=== PATIENT | male | born 1955 | race Two or more races ===

== ENCOUNTER 2021-07-13 09:01 | Outpatient (CLI) | payer OTHER | END 2021-07-13 15:38 | disposition home or self-care (01) | LOC: SONOGRAMA 09:01 | PROVIDERS: ATTEND Specialist | DX: R74.8 Abnormal levels of other serum enzymes (principal) ==

== ENCOUNTER 2022-11-18 07:31 | Outpatient (CLI) | payer OTHER | END 2022-11-18 07:43 | disposition home or self-care (01) | LOC: SONOGRAMA 07:31 | PROVIDERS: ATTEND Specialist | DX: R74.8 Abnormal levels of other serum enzymes (principal); R79.89 Other specified abnormal findings of blood chemistry ==

== ENCOUNTER 2025-04-15 16:55 | Emergency (ER) | payer OTHER ==
[~2025-04-15] VITALS: Ht 167.6 cm; Wt 59.0 kg
[2025-04-15] MEDS ORDERED: TOPROL XL100 M1 PO (17:21)
[2025-04-15] MEDS ORDERED: PLAVIX75 MG PO (17:21)
[2025-04-15 17:22] VITALS: O2SAT 99
[2025-04-15] MEDS ORDERED: LEVO-T25 MCG PO (17:22)
[2025-04-15] MEDS ORDERED: CEFTRIAXONE SODIUM 2,000 MG in 0.9 % SODIUM CHLORIDE 100 ML IV ONE (18:00)
[2025-04-15] MEDS ORDERED: TAMSULOSIN HCL 0.4 MG CAP PO ONE ×2 (18:00→18:15)
[2025-04-15] MEDS ORDERED: ACETAMINOPHEN 500 MG GEL..CAP PO ONE ×2 (18:00→18:15)
[2025-04-15] MEDS ORDERED: 0.9 % SODIUM CHLORIDE 1,000 ML IV ONE (18:00)
[2025-04-15] MEDS ORDERED: CEFTRIAXONE SODIUM 2,000 MG VIAL ONE (18:15)
[2025-04-15 19:22] LABS: BASO % 0.3 % (0.1-1.2); EOS # 0.04 (0.04-0.54); EOS % 0.4 % (0.7-7.0); LYMPH # 2.12 (1.18-3.74); LYMPH % 18.7 % (19.3-53.1); MEAN PLATELET VOLUME 10.40 fl (9.4-12.4); MONO # 1.09 (0.24-0.82); MONO % 9.6 % (4.7-12.5); NEUT # 7.99 (1.56-6.13); NEUT % 70.4 % (34.0-71.1); RED CELL DISTRIBUTION WIDTH 13.9 % (11.6-14.4)
[2025-04-15 19:25] LABS: ERYTHROCYTE SEDIMENTATION RATE 16 mm/hr (0-20)
[2025-04-15 19:53] LABS: INR 1.04
[2025-04-15 20:25] LABS: ALT/SGPT 23.0 U/L (12-78); AST/SGOT 26.0 U/L (15-37); BILIRUBIN TOTAL 1.83 mg/dL (0.3-1.2); BUN CREA RATIO 11.0 (7.0-25.0); CREATININE SERUM 0.98 mg/dL (0.70-1.30); GFR 75.18; GLOBULINA 5.2 G/DL (2.4-3.5); GLUCOSE FASTING 108.0 mg/dL (65-100); OSMOLALITY SERUM 276.0 MOSM/KG (275-295); PROSTATIC SPECIFIC ANTIGEN 17.1 NG/ML (0.010-4.00)
[2025-04-15 21:09] LABS: URINE APPEARANCE Clear; URINE BILIRRUBIN Negative (NEGATIVE); URINE BLOOD Large; URINE COLOR Orange; URINE GLUCOSE Negative (NEGATIVE); URINE KETONE Negative (NEGATIVE); URINE LEUKOCYTE Trace; URINE NITRATE Positive; URINE PROTEIN Trace (NEGATIVE); URINE UROBILINOGEN 0.2 E.U./dl
[2025-04-15 21:13] LABS: URINE BACTERIA 387.8 uL (0.0-1933); URINE EPITHELIAL CELLS 1.8 uL (0.0-38.8); URINE RBC 181.7 uL (0.0-20.8); URINE WBC 13.0 uL (0.0-23.2)
[2025-04-15 22:23] LABS: URINE CAST 0.00 uL (0.0-1.40)
[2025-04-15] MEDS ORDERED: ENALAPRILAT DIHYDRATE 1.25 MG/ML VIAL IV ONE (22:45)
[2025-04-15] MEDS ORDERED: ACETAMINOPHEN 500 MG GEL..CAP PO PRN (22:45)
[2025-04-16] MEDS ORDERED: ENALAPRILAT DIHYDRATE 1.25 MG/ML VIAL IV ONE (01:06)
[2025-04-16 04:00] VITALS: BP 130/80
[2025-04-16] MEDS ORDERED: CEFTRIAXONE SODIUM 2,000 MG in 0.9 % SODIUM CHLORIDE 100 ML IV SCH (09:00)
[2025-04-16] MEDS ORDERED: METOPROLOL SUCCINATE 100 MG TAB.SR.24H PO SCH (09:00)
[2025-04-16] MEDS ORDERED: CEFTRIAXONE SODIUM 1,000 MG VIAL ONE (09:49)
[2025-04-16] MEDS ORDERED: BACTRIM DS TAB1 EACH PO (11:54)
[2025-04-16] MEDS ORDERED: [UNRECOGNIZED DRUG - OTHER] PO (11:55)
[2025-04-16] MEDS ORDERED: TAMSULOSIN HCL0.4 MG PO (11:55)
== END 2025-04-16 12:48 | disposition home or self-care (01) ==
LOC: ER 16:56
PROVIDERS: General Practice
DX: N39.0 Urinary tract infection, site not specified (principal); N41.1 Chronic prostatitis
CPT/HCPCS: 36415; 74176; 96365; 96366; 99284; J0696; J3490; J7030